=== PATIENT | male | born 1945 | race African-American/Black ===

== ENCOUNTER → 2019-11-15 | Outpatient (CLI) | payer OTHER ==
--- NOTE | 2019-11-15 13:42 | 2DMMODE ---
[place] [address] 2 D/M-MODE ECHOCARDIOGRAM Name: NATALI MAJANO JR Room: [facility]#: [id number] Admission: 11/15/19 Attend Phys: Tad Voss MD Discharge: Date of : 41 Date of Service: 11/15/19 1341 Report #: [id number] THIS REPORT FOR: cc: Physician not on staff Physician not on staff Porfirio Calzada MD [facility] ~ APPROVED REPORT Study performed: 11/15/2019 10:57:24 EXAM: Comprehensive 2D, Doppler, and color-flow Echocardiogram Patient Location: Out-Patient BSA: 2.27 HR: 60 bpm BP: 140/80 mmHg Other Information Study Quality: Good Indications CAD 2D Dimensions IVSd: 16.71 (7-11mm) LVOT Diam: 20.33 (18-24mm) LVDd: 44.63 mm PWd: 12.18 (7-11mm) Ascending Ao: 33.40 (22-36mm) LVDs: 24.77 (25-40mm) Aortic Root: 34.57 mm Volumes Left Atrial Volume (Systole) LA ESV Index: 20.80 mL/m2 Aortic Valve AoV Peak Kareem.: 1.28 m/s AO Peak Gr.: 6.53 mmHg LVOT Max P.49 mmHg AO Mean Gr.: 3.84 mmHg LVOT Mean P.59 mmHg LVOT Max V: 0.93 m/s AO V2 VTI: 32.57 cm LVOT Mean V: 0.58 m/s PEPE (VTI): 2.50 cm2 LVOT V1 VTI: 25.04 cm Mitral Valve E/A Ratio: 0.85 [place] [address] 2 D/M-MODE ECHOCARDIOGRAM Name: NATALI MAJANO JR Room: [facility]#: [id number] Admission: 11/15/19 Attend Phys: Tad Voss MD Discharge: Date of : 41 Date of Service: 11/15/19 1341 Report #: [id number] MV Decel. Time: 190.62 ms MV E Max Kareem.: 0.66 m/s MV PHT: 55.28 ms MVA (PHT): 3.98 cm2 TDI E/Lateral E': 6.60 E/Medial E': 8.25 Medial E' Kareem.: 0.08 m/s Lateral E' Kareem.: 0.10 m/s Pulmonary Valve PV Peak Kareem.: 0.86 m/s PV Peak Gr.: 2.95 mmHg Tricuspid Valve RAP Estimate: 5.00 mmHg TR Peak Gr.: 25.98 mmHg RVSP: 30.98 mmHg PA Pressure: 30.98 mmHg Left Ventricle The left ventricle is normal size. There is normal LV segmental wall motion. Mild concentric left ventricular hypertrophy. Left ventricular systolic function is normal. The left ventricular ejection fraction is within the normal range. LVEF is 60-65%. Grade I - abnormal relaxation pattern. Right Ventricle The right ventricle is normal size. The right ventricular systolic function is normal. Atria The left atrium size is normal. The right atrium size is normal. Aortic Valve Aortic valve is mildly calcified. No aortic regurgitation is present. There is no aortic valvular stenosis. Mitral Valve The mitral valve is normal in structure. Trace mitral regurgitation. No evidence of mitral valve stenosis. Tricuspid Valve The tricuspid valve is normal in structure. Mild tricuspid regurgitation. estimated pa pressure 40 [place] [address] 2 D/M-MODE ECHOCARDIOGRAM Name: ANGELES MAJANOMIREYA HAMMER Room: [facility]#: [id number] Admission: 11/15/19 Attend Phys: Tad Voss MD Discharge: Date of : 41 Date of Service: 11/15/19 1341 Report #: [id number] The pulmonary valve is normal in structure. Mild pulmonic regurgitation. Great Vessels The aortic root is normal in size. IVC is normal in size and collapses >50% with inspiration. Pericardium There is no pericardial effusion. <Conclusion> Mild concentric left ventricular hypertrophy. LVEF is 60-65%. Aortic valve is mildly calcified. Mild tricuspid regurgitation. estimated pa pressure 40 mm Hg <ELECTRONICALLY SIGNED> By: Porfirio Calzada MD, FACC 11/15/19 1341 134 134 Porfirio Calzada MD, FACC /INF
== END ==
LOC: M.CRD 11:00
DX: I08.8 Other rheumatic multiple valve diseases (principal); I25.10 Atherosclerotic heart disease of native coronary artery without angina pectoris